=== PATIENT | male | born 1985 | race Two or more races ===

== ENCOUNTER 2022-05-13 02:45 | Emergency (ER) | payer SELFPAY ==
[~2022-05-13] VITALS: Ht 177.8 cm; Wt 90.7 kg
[2022-05-13] MEDS ORDERED: diphenhydrAMINE HCL 50 MG/ML VIAL ONE (03:09)
[2022-05-13] MEDS ORDERED: LORAZEPAM INJ 2 MG/ML VIAL ONE (03:10)
[2022-05-13] MEDS ORDERED: HALOPERIDOL LACTATE INJ 5 MG/ML VIAL ONE (03:10)
[2022-05-13] MEDS ORDERED: LORAZEPAM INJ 2 MG/ML VIAL IM ONE (03:30)
[2022-05-13] MEDS ORDERED: HALOPERIDOL LACTATE INJ 5 MG/ML VIAL IM ONE (03:30)
[2022-05-13] MEDS ORDERED: diphenhydrAMINE HCL 50 MG/ML VIAL IM ONE (03:30)
[2022-05-13] MEDS ORDERED: OLANZAPINE 10 MG VIAL IM ONE ×2 (03:35→04:00)
--- NOTE | 2022-05-13 03:45 | NUR ---
PATIENT BIBRA 860 FOR "WALKED IN TO THE FIRE STATION COMPLAINING OF HEROIN USE". PATIENT IS A/O X 2, RR EVEN AND UNLABORED, NO SOB NOTED, PATIENT IS AFEBRILE. PATIENT TAKEN TO ER BED 15. PATIENT CONNECTED MONITORS.
--- NOTE | 2022-05-13 05:07 | NUR ---
PT SLEEPING AT THIS TIME. VSS. ALL NEEDS MET AT THIS TIME.
--- NOTE | 2022-05-13 05:13 | NUR ---
URINE COLLECTED AND SENT TO LAB
[2022-05-13 05:21] LABS: BASOPHILS % (AUTO) 0.4 % (0.0-2.0); EOSINOPHILS % (AUTO) 1.9 % (0.0-6.0); HEMATOCRIT 38 % (39-51); HEMOGLOBIN 12.8 g/dL (13.5-17.5); LYMPHOCYTES # (AUTO) 1.3 K/uL (0.8-4.8); LYMPHOCYTES % (AUTO) 18.2 % (20.0-44.0); MEAN CORPUSCULAR HGB CONC 34 g/dl (31.0-36.0); MEAN CORPUSCULAR VOLUME 96 fL (80-96); MONOCYTES # (AUTO) 0.6 K/uL (0.1-1.30); MONOCYTES % (AUTO) 9.3 % (2.0-12.0); NEUTROPHILS # (AUTO) 4.9 K/uL (1.8-8.9); NEUTROPHILS % (AUTO) 70.2 % (43.0-81.0); PLATELET COUNT (AUTO) 163 K/uL (150-450); RED BLOOD CELL COUNT(AUTO) 3.96 MIL/uL (4.5-6.0)
[2022-05-13 05:30] LABS: CALCIUM, SERUM 7.9 mg/dL (8.5-10.1); CARBON DIOXIDE 25 mmol/L (21-32); CHLORIDE 107 mmol/L (98-107); CREATININE 0.8 mg/dL (0.6-1.3); GLUCOSE 86 mg/dL (74-106); POTASSIUM 3.6 mmol/L (3.5-5.1); SODIUM SERUM 141 mmol/L (136-145); UREA NITROGEN, BLOOD 11 mg/dL (7-18)
[2022-05-13 05:33] LABS: BILIRUBIN,URINE NEGATIVE (NEGATIVE); COLOR,URINE YELLOW (YELLOW); LEUKOCYTE ESTERASE ,URINE NEGATIVE (NEGATIVE); NITRITE, URINE NEGATIVE (NEGATIVE); PROTEIN,URINE NEGATIVE (NEGATIVE); UGLUCOSE NEGATIVE (NEGATIVE); UROBILINOGEN,URINE 0.2 EU/dL (0.2)
[2022-05-13 05:39] LABS: ALANINE AMINOTRANSFERASE 22 U/L (12-78); ALBUMIN 3.3 g/dL (3.4-5.0); ALKALINE PHOSPHATASE 69 U/L (46-116); ASPARTATE AMINOTRANSFERASE 25 U/L (15-37); BILIRUBIN,DIRECT 0.2 mg/dL (0.0-0.2); BILIRUBIN,TOTAL 0.7 mg/dL (0.2-1.0); TOTAL PROTEIN, SERUM 6.4 g/dL (6.4-8.2)
[2022-05-13 05:41] LABS: ACETAMINOPHEN < 2 ug/ml (10-30); ALCOHOL, BLOOD < 3 mg/dL (0-0)
--- NOTE | 2022-05-13 10:00 | NUR ---
SS consult requested for drug use. SW attempted to completed biopsychosocial with pt. and pt. was sleeping and not rousable to verbal cues. SW willfollow up at a later time.
[2022-05-13 15:39] VITALS: BP 140/86
--- NOTE | 2022-05-13 20:31 | NUR ---
Patient discharged to home in stable condition. Written and verbal after care instructions given. Patient verbalizes understanding of instruction.
== END 2022-05-13 20:32 | disposition home or self-care (01) ==
LOC: EDBD 02:47 → ER 02:47
DX: R46.1 Bizarre personal appearance (principal)
CPT/HCPCS: 36415; 80048; 80076; 80143; 80307; 80320; 81003; 85025; 96372 ×2; 99284; J1200; J1630; J2060; J3490; G0480